=== PATIENT | female | born 1965 | race African-American/Black ===

== ENCOUNTER → 2017-02-15 | Outpatient (CLI) | payer OTHER ==
[~2017-02-15] MED LIST: ATORVASTATIN CA10 MG PO; BENZONATATE PO; BIOTIN1000 MCG PO; COLACE PO; FISH OIL 1,0001 CA2 PO; FLEXERIL10 MG PO; HYDROCHLOROTH12.5 MG PO; METFORMIN HCL500 M1 PO; MULTI VITAMIN1 EACH PO; OMEPRAZOLE40 M1 PO; PHENERGAN PO; PHENERGAN PR; PREDNISONE10 MG PO; TOPROL XL PO; TYLENOL #3 PO; VICODIN 5/500 T1 TAB PO; VITAMIN B-12500 MC1 PO; VITAMIN D400 UNI2 PO
--- NOTE | ~2017-02-15 | NM19 ---
[facility] A Service of [facility] RADIOLOGY TEXT RESULTS PATIENT: MARGARITA SOLORIO LOCATION: [facility] : 61 UNIT #: [id number] AGE: [address]: SHIVANI SEBASTIAN APRN SEX: F ORDER DR: [id number] [facility] [address] [place], [place] [address] [id number] O MR#: [id number] Acc #: [id number] NAME: MARGARITA SOLORIO V. : 1965 SEX: F STUDY DATE/TIME: 02/15/2017 10:09 UNIT: [facility] ROOM: STUDY DESCRIPTION: HI Gastric Emptying Study Attending Physician: Shivani Sebastian Aprn Referring Physician: Shivani Sebastian Aprn Ordering Physician: Shivani Sebastian Aprn Primary Care Physician: Gill Miramontes M.D. MEDICAL IMAGING REPORT This report is preliminary unless electronic signature is present EXAM Gastric emptying scan 02/15/2017 HISTORY Bloating. Gassy, belching, constipation, bloating with distension, center of abdomen pain, nausea, vomiting, acid reflux, kidney stones on both sides. Symptoms for a long time have gotten worse since October 2016. FINDINGS Following ingestion of 568 [employer]i technetium 99m sulfur colloid admixed with scrambled eggs, anterior and posterior images of the abdomen were obtained at 0, 60, 120, 240 minutes post ingestion. Region of interest drawn around stomach. Time activity curve constructed. Percent remaining at time intervals as follows: 60 minutes - 67%, 120 minutes - 33%, 240 minutes - 5%. Percent empty at time intervals as follows: 60 minutes - 33%, 120 minutes - 67%, 240 minutes - 95%. IMPRESSION Two hour solid phase gastric emptying in this patient is 67%. Normal is greater than 60%. Four hour solid phase gastric emptying in this patient is 95%. Normal is greater than 90%. Dictated by... Young Charlton M.D. THIS IS AN ELECTRONICALLY VERIFIED REPORT Young Charlton M.D. at 02/16/2017 4:57 PM KEIRY/lina TD: 02/16/2017 10:51 JOB #: [id number] [facility] A Service of [facility] RADIOLOGY TEXT RESULTS PATIENT: MARGARITA SOLORIO LOCATION: [facility] : 61 UNIT #: [id number] AGE: [address]: SHIVANI SEBASTIAN APRN SEX: F ORDER DR: MEDICAL IMAGING REPORT Page 1 of 1 COPY
== END | disposition home or self-care (01) ==
LOC: CNUC 09:23
DX: R10.13 Epigastric pain (principal); R14.0 Abdominal distension (gaseous); R11.0 Nausea
CPT/HCPCS: 78264; A9541